=== PATIENT | male | born 1950 | race Caucasian/White ===

== ENCOUNTER 2017-05-31 06:14 | Day surgery (SDC) | payer MEDICARE ==
[~2017-05-31] VITALS: Ht 182.9 cm; Wt 81.8 kg
[2017-05-31 06:42] VITALS: BP 108/64; PULSE 59; RESP 20; TEMP 97.7; O2SAT 97
[2017-05-31] MEDS ORDERED: LEVO75TA3 PO (06:48)
[2017-05-31 07:12] LABS: AUTOMATED NEUTROPHIL # 2.5 TH/MM3 (1.8-7.7); BASOPHIL % 0.8 % (0.0-2.0); EOSINOPHIL # 0.4 TH/MM3 (0-0.4); EOSINOPHIL % 11.3 % (0.0-4.0); HEMATOCRIT 39.8 % (39.0-51.0); HEMO FLAGS DIFF FINAL; LYMPH % 12.2 % (9.0-44.0); LYMPHOCYTE # 0.5 TH/MM3 (1.0-4.8); MEAN CELL VOLUME 93.1 FL (80.0-100.0); MEAN CORPUSCULAR HEMOGLOBIN 31.7 PG (27.0-34.0); MONO % 11.3 % (0.0-8.0); NEUT % 64.4 % (16.0-70.0); PLATELET COUNT 205 TH/MM3 (150-450); RED BLOOD COUNT 4.27 MIL/MM3 (4.50-5.90); RED CELL DISTRIBUTION WIDTH 13.4 % (11.6-17.2); WHITE BLOOD COUNT 3.9 TH/MM3 (4.0-11.0)
[2017-05-31] MEDS ORDERED: SODIUM CHLORIDE 0.9% 1000 ML IV SCH (07:15)
[2017-05-31] MEDS ORDERED: ceFAZolin 2 GM PREMIX 50 ML - implanted port removal IV SCH (07:15)
[2017-05-31 07:24] LABS: APTT (PATIENT) 32.2 SEC (24.3-30.1); PROTHROMBIN TIME - PATIENT 11.3 SEC (9.8-11.6)
[2017-05-31] MEDS ORDERED: MIDAZOLAM HCL 2 MG/2 ML VIAL ONE (08:25)
[2017-05-31] MEDS ORDERED: LIDOCAINE 1%/EPINEPHrine 1:100,000 SOLN 20 ML VIAL ONE (08:36)
--- NOTE | 2017-05-31 09:18 | PD.RAD ---
Post Procedure Progress Note Pre Procedure Diagnosis: (1) Infected venous access port Post Procedure Diagnosis: (1) Infected venous access port Procedure Date: May 31, 2017 Supervising Radiologist: Tadeo Martino Anesthesia: Local, Conscious Sedation Plan of Activity Patient to Unit: ROPU Patient Condition: Good Additional Comments: Infusaport was exposed to the surface. Port removed without difficulty. Port pocket packed with iodaform. Pt. will return in 5 days for packing removal. See PACS Report for procedural detail/treatment Tadeo Martino MD May 31, 2017 09:18
[2017-05-31 09:20] VITALS: BP 112/69; PULSE 45; RESP 18; TEMP 97.5; O2SAT 99
[2017-05-31 09:35] VITALS: BP 98/56; PULSE 55; RESP 20; O2SAT 99
[2017-05-31 10:05] VITALS: BP 107/68; PULSE 51; RESP 20; O2SAT 99
[2017-05-31 10:35] VITALS: BP 113/60; PULSE 45; RESP 20; O2SAT 99
--- NOTE | 2017-05-31 13:21 | RADRPT ---
EXAM DATE/TIME: 05/31/2017 08:10 [facility] COMPARISON: [id number] PLCMT, POWERPORT, W US, RIGHT, April 24, 2016, 10:04. INDICATIONS : Patient presents with [id number] exposed to skin surface in need of port removal. MEDICAL HISTORY : Hypothyroid, Cholelithiasis, Left neck mass SURGICAL HISTORY : Left neck mass biopsy, G-tube, Port placement ENCOUNTER: Subsequent ACUITY: > 1 year PAIN SCORE: 0/10 SEDATION TIME: 30 minutes 1.) 1 mg midazolam (Versed) IV 2.) 50 mcg fentanyl (Sublimaze) IV Prophylactic antibiotics were administered with appropriate pre-procedure timing. Vancomycin within 2 hrs of procedure, Ancef (or alternative) within 1 hr of procedure. PROCEDURE : 1. Removal of Cvvwhn-e-ayga. 2. Conscious sedation with continuous EKG and oximetry monitoring. The patient was evaluated in the outpatient unit prior to port removal. The port was exposed are smal ler in the skin. The risk, benefits and potential complications of Oznoyw-v-Rwws removal were discussed. Written conse nt was obtained. The patient was placed supine. The chest wall was prepped in sterile fashion. Full sterile techniqu e was used, including cap, mask, sterile gloves and gown, and a large sterile sheet. Hand hygiene an d 2% chlorhexidine and/or Betadine/alcohol prep was utilized per protocol for cutaneous antisepsis. The skin and subcutaneous tissues were infiltrated with local anesthetic solution. A small incision w as made, the subcutaneous pocket was opened. The port was dissected from the subcutaneous tissues and easily removed in one piece. The pocket was irrigated with a copious amount of sterile saline. The pocket was packed with iodoform gauze. The pocket was partially closed with a 4-0 Vicryl suture. The patient return in 5 days for re moval/replacement of the packing. Conscious sedation was performed with the prescribed dosages and duration as above in the presence of an independent trained radiology nurse to assist in the monitoring of the patient. EKG and oximetry remained stable throughout the procedure. The patient tolerated the procedure well and there were no complications. The patient was sent to post anesthesia recovery in stable condition. CONCLUSION: Uncomplicated port removal as above. The posterior aspect of the port was exposed. The pocket appeare d infected though no gross pus was identified. This was irrigated with a copious amount of sterile sa line. The pocket was packed with iodoform gauze. Tadeo Martino MD on May 31, 2017 at 13:16 Board Certified Radiologist. This report was verified electronically.
== END 2017-05-31 11:30 | disposition home or self-care (01) ==
LOC: HROP 06:14 → HRIP 06:30 → HROP 11:30
PROVIDERS: ATTEND Internal Medicine Hematology & Oncology
DX: T80.219A Unspecified infection due to central venous catheter, initial encounter (principal); C76.0 Malignant neoplasm of head, face and neck; E03.9 Hypothyroidism, unspecified; K80.20 Calculus of gallbladder without cholecystitis without obstruction; Z01.818 Encounter for other preprocedural examination
CPT/HCPCS: 36589; 85025; 85610; 85730; 99152; 99153; J0690; J2250; J3010; J7030

== ENCOUNTER 2017-06-05 09:56 | Day surgery (SDC) | payer MEDICARE ==
[~2017-06-05 09:56] MED LIST: LEVO75TA3 PO
[2017-06-05 10:10] VITALS: BP 137/73; PULSE 61; RESP 20; TEMP 98; O2SAT 99
== END 2017-06-05 10:35 | disposition home or self-care (01) ==
LOC: HROP 09:56 → HRIP 09:59 → HROP 10:35
PROVIDERS: ATTEND Radiology Body Imaging
DX: Z48.01 Encounter for change or removal of surgical wound dressing (principal); C76.0 Malignant neoplasm of head, face and neck
CPT/HCPCS: 99212; G0463

== ENCOUNTER 2017-06-08 09:59 | Day surgery (SDC) | payer MEDICARE ==
[2017-06-08 10:15] VITALS: BP 119/72; PULSE 67; RESP 20; TEMP 98.3; O2SAT 99
== END 2017-06-08 10:57 | disposition home or self-care (01) ==
LOC: HROP 09:59 → HRIP 10:03 → HROP 10:57
PROVIDERS: ATTEND Radiology Body Imaging
DX: Z48.01 Encounter for change or removal of surgical wound dressing (principal)
CPT/HCPCS: 99212; G0463

== ENCOUNTER 2017-06-13 10:01 | Day surgery (SDC) | payer MEDICARE ==
[2017-06-13 10:19] VITALS: BP 130/68; PULSE 47; RESP 20; TEMP 97.5; O2SAT 98
== END 2017-06-13 10:25 | disposition home or self-care (01) ==
LOC: HROP 10:01 → HRIP 10:05 → HROP 10:25
PROVIDERS: ATTEND Radiology Body Imaging
DX: Z48.01 Encounter for change or removal of surgical wound dressing (principal); C76.0 Malignant neoplasm of head, face and neck
CPT/HCPCS: 99212; G0463